=== PATIENT | male | born 1950 | race Caucasian/White ===

== ENCOUNTER 2024-02-22 00:27 | Observation (INO) | payer MEDICARE, OTHER, SELFPAY ==
[2024-02-22] VITALS (7 sets, daily range): BP systolic 114–135; BP diastolic 57–87; PULSE 86–115; RESP 18–20; TEMP 36.8–37.3; O2SAT 92–98
--- NOTE | ~2024-02-22 | XR_ITS ---
Portable chest x-ray Comparison: None Clinical History: Covid Findings: Possible retrocardiac airspace consolidation focally. Right lung clear. Cardiomediastinal silhouette is unremarkable. Bones and soft tissues are unremarkable. Impression: Possible focal left lower lobe airspace disease. Correlate for atelectasis or pneumonia. Reviewed, dictated and finalized at [facility]. Impression: Possible focal left lower lobe airspace disease. Correlate for atelectasis or p neumonia.
[2024-02-22 00:49] LABS: Basophils Percent Auto 0.4 % (0.2-1.2); Eosinophils Percent Auto 0.4 % (0-4.4); Hematocrit 42.3 % (42.0-52.0); Hemoglobin 14.3 g/dL (14.0-18.0); Immature Granulocyte Absolute 0.03 K/mm3 (0.00-0.031); Immature Granulocyte Percent A 0.4 % (0-0.5); Lymphocytes Absolute Auto 1.27 K/mm3 (0.9-3.2); Lymphocytes Percent Auto 15.5 % (18.3-44.2); Mean Corpuscular HGB Conc 33.8 g/dl (32-36); Mean Corpuscular Hemoglobin 30.1 pg (26-34); Mean Corpuscular Volume 89.1 fl (80-100); Mean Platelet Volume 8.9 fl (7.4-10.4); Monocytes Absolute Auto 1.2 K/mm3 (0.1-0.6); Monocytes Percent Auto 14.5 % (2.6-8.5); Neutrophils Absolute Auto 5.7 K/mm3 (1.3-6.7); Neutrophils Percent Auto 68.8 % (45.5-73.1); Platelet Count Result 178 k/mm3 (150-375); Red Blood Count 4.75 M/mm3 (4.6-6.20); Red Cell Distribution Width 13.1 % (11.5-14.5); White Blood Count 8.2 K/mm3 (4.5-10.0)
[2024-02-22 00:59] LABS: Alanine Aminotransferase 14 U/L (6-50); Albumin Level 4.5 g/dL (3.5-5.1); Alkaline Phosphatase 80 U/L (38-126); Anion Gap 8 mmol/L (4-12); Aspartate Amino Transferase 21 U/L (17-59); Bilirubin,Total 0.6 mg/dL (0.2-1.3); Blood Urea Nitrogen 18 mg/dL (9-20); Calcium 9.4 mg/dL (8.4-10.2); Carbon Dioxide 25 mmol/L (22-30); Chloride 103 mmol/L (98-107); Estimated CRCL calculation 51 ml/min; Estimated Glomerular Filt Rate > 60; Glucose 183 mg/dL (65-110); Potassium 3.9 mmol/L (3.4-5.0); Sodium 136 mmol/L (137-145)
[2024-02-22 01:00] LABS: Lactic Acid Reflex 1.3 mmol/L (0.7-2.0)
--- NOTE | 2024-02-22 01:13 | ED.GENADULT ---
HPI - General Adult General Chief complaint: Unspecified Stated complaint: weakness Time Seen by Provider: 02/22/24 01:13 History of Present Illness HPI narrative: This is a 73-year-old male presenting ED with chief complaint of generalized weakness. patient has been feeling unwell for the last 3 days. Symptoms include dizziness, generalized weakness chest congestion with productive cough and subjective fevers. Decreased oral intake. He has been treating symptoms with Tylenol and cough syrup. He denies sick contacts at home. He denies falls, nausea vomiting or diarrhea. No lower extremity edema. [facility]LY [facility] Past Medical History Medical History CHF (congestive heart failure) Diabetes Exam Narrative: APPEARANCE: no apparent distress, Patient becomes dizzy when going from lying to sitting Head: atraumatic. EYES: EOMI, NOSE: Atraumatic NECK: Trachea midline RESPIRATORY: No increased rate of breathing , clear to auscultation CARDIOVASCULAR: tachycardic, no peripheral edema ABDOMINAL: Non-distended soft nontender MUSCULOSKELETAl: No obvious deformities NEURO: Alert. Moving 4/4 extremities SKIN:: Warm, dry. Normal color PSYCHIATRIC: Normal affect Course Vital Signs Vital signs: Vital Signs Temperature 99.2 F 02/22/24 00:29 Pulse Rate 115 H 02/22/24 00:29 Respiratory Rate 20 02/22/24 00:29 Blood Pressure 114/79 02/22/24 00:29 Pulse Oximetry 97 02/22/24 00:29 Oxygen Delivery Room Air 02/22/24 00:29 Temperature 99.2 F 02/22/24 00:29 Pulse Rate 99 02/22/24 03:47 Respiratory Rate 18 02/22/24 03:47 Blood Pressure 122/87 02/22/24 03:47 Pulse Oximetry 98 02/22/24 03:47 Oxygen Delivery Room Air 02/22/24 00:29 Medical Decision Making [facility] Narrative Medical decision making narrative: -Course: 73-year-old male presenting with 3 days of flu-like symptoms. positive for COVID. No oxygen requirements. Patient tachycardic on arrival. Given fluid resuscitation with improvement in heart rate. Attempted to ambulate the patient around the emergency department and he became lightheaded and had to be assisted back to his bed. Patient will be placed in observation for COVID and dehydration. -DDX includes but is not limited to: COVID flu pneumonia sepsis dehydration UTI CHF exacerbation -Co-morbidities complicating care: CHF,diabetes -Independent interpretation of studies: CBC and metabolic panel unremarkable. Lactic normal. COVID positive chest x-ray - clear lungs -Discussion of Management/Consultants: -Interventions: 2 L normal saline, Tylenol, 125cc/hr LR -Shared decision making / Disposition:observation Vital Signs Vital Signs: Vital Signs Temperature 99.2 F 02/22/24 00:29 Pulse Rate 115 H 02/22/24 00:29 Respiratory Rate 20 02/22/24 00:29 Blood Pressure 114/79 02/22/24 00:29 Pulse Oximetry 97 02/22/24 00:29 Oxygen Delivery Room Air 02/22/24 00:29 Temperature 99.2 F 02/22/24 00:29 Pulse Rate 99 02/22/24 03:47 Respiratory Rate 18 02/22/24 03:47 Blood Pressure 122/87 02/22/24 03:47 Pulse Oximetry 98 02/22/24 03:47 Oxygen Delivery Room Air 02/22/24 00:29 Lab Data 02/22/24 00:42 02/22/24 00:42 Labs: Lab Results 02/22/24 02/22/24 Range/Units 00:42 00:44 WBC 8.2 (4.5-10.0) K/mm3 RBC 4.75 (4.6-6.20) M/mm3 Hgb 14.3 (14.0-18.0) g/dL Hct 42.3 (42.0-52.0) % MCV 89.1 (80-100) fl MCH 30.1 (26-34) pg MCHC 33.8 (32-36) g/dl RDW 13.1 (11.5-14.5) % Plt Count 178 (150-375) k/mm3 MPV 8.9 (7.4-10.4) fl Immature Gran % (Auto) 0.4 (0-0.5) % Neut % (Auto) 68.8 (45.5-73.1) % Lymph % (Auto) 15.5 L (18.3-44.2) % Roosevelt % (Auto) 14.5 H (2.6-8.5) % Eos % (Auto) 0.4 (0-4.4) % Baso % (Auto) 0.4 (0.2-1.2) % Lymph # (Auto) 1.27 (0.9-3.2) K/mm3 Roosevelt # (Auto) 1.2 H (0.1-0.6) K/mm3 Eos
[2024-02-22 01:26] LABS: Influenza A QL RT-PCR Negative (Negative); Influenza B QL RT-PCR Negative (Negative); RSV RNA, RT-PCR Negative (Negative); SARS-CoV-2 RNA PCR Positive (Negative)
--- NOTE | 2024-02-22 02:12 | ECG_ITS ---
SEE SCANNED COPY FOR CONFIRMED REPORT MTDD
[2024-02-22] MEDS: ACETAMINOPHEN 500 MG TABLET 1000 MG PO ×2 (03:23→11:27)
[2024-02-22] MEDS: SODIUM CHLORIDE 0.9% IV 2,000 ML 999 ML IV CONT (03:25)
--- NOTE | 2024-02-22 05:38 | ED.GENADULT ---
HPI - General Adult General Chief complaint: Unspecified Stated complaint: weakness Time Seen by Provider: 02/22/24 01:13 Related Data Home Medications Medication Instructions Recorded Confirmed apixaban 5 mg tablet (Eliquis) 5 mg PO BID 02/22/24 02/22/24 Review of Systems Review of Systems: All systems reviewed & are unremarkable except as noted in HPI and below PMFSH Past Medical History Medical History CHF (congestive heart failure) Diabetes Social History Social History Smoking status: Never smoker Second hand tobacco smoke exposure: No Alcohol intake: never Substance use: never Do You Feel Safe in your Home?: Yes Lack of Transportation: No Lack of Food: Never True Current Housing: I Have Housing Concerned About Future Housing: YES Difficulty Paying Gas/Electric Bills: No Difficulty Paying for Meds: No Currently Unemployed: No Education: High School Diploma/GED Difficulty w/ Childcare or Family Care: No Spiritual care concerns: No Exam Narrative: GENERAL: Well appearing, no acute distress. HEAD: Normocephalic, atraumatic. NECK: Supple. No adenopathy, no masses. RESPIRATORY: respirations nonlabored. , no rales, wheezing. CARDIOVASCULAR: Regular rate and rhythm without murmurs, . Peripheral pulses 2+ and equal bilaterally. ABDOMINAL: Soft, nontender, nondistended, no hepatosplenomegaly. Normoactive BS. MUSCULOSKELETAL: no Epigastric and no hypochondrial tenderness SKIN: Warm, dry, NEURO: A&O X3. Moves all extremities Course Vital Signs Vital signs: Vital Signs Temperature 37.3 C 02/22/24 00:29 Pulse Rate 115 H 02/22/24 00:29 Respiratory Rate 20 02/22/24 00:29 Blood Pressure 114/79 02/22/24 00:29 Pulse Oximetry 97 02/22/24 00:29 Oxygen Delivery Room Air 02/22/24 00:29 Temperature 37.3 C 02/22/24 00:29 Pulse Rate 103 H 02/22/24 05:15 Respiratory Rate 19 02/22/24 05:15 Blood Pressure 125/83 02/22/24 05:15 Pulse Oximetry 97 02/22/24 05:15 Oxygen Delivery Room Air 02/22/24 00:29 Medical Decision Making Vital Signs Vital Signs: Vital Signs Temperature 37.3 C 02/22/24 00:29 Pulse Rate 115 H 02/22/24 00:29 Respiratory Rate 20 02/22/24 00:29 Blood Pressure 114/79 02/22/24 00:29 Pulse Oximetry 97 02/22/24 00:29 Oxygen Delivery Room Air 02/22/24 00:29 Temperature 37.3 C 02/22/24 00:29 Pulse Rate 103 H 02/22/24 05:15 Respiratory Rate 19 02/22/24 05:15 Blood Pressure 125/83 02/22/24 05:15 Pulse Oximetry 97 02/22/24 05:15 Oxygen Delivery Room Air 02/22/24 00:29 Lab Data 02/22/24 00:42 02/22/24 00:42 Labs: Lab Results 02/22/24 02/22/24 Range/Units 00:42 00:44 WBC 8.2 (4.5-10.0) K/mm3 RBC 4.75 (4.6-6.20) M/mm3 Hgb 14.3 (14.0-18.0) g/dL Hct 42.3 (42.0-52.0) % MCV 89.1 (80-100) fl MCH 30.1 (26-34) pg MCHC 33.8 (32-36) g/dl RDW 13.1 (11.5-14.5) % Plt Count 178 (150-375) k/mm3 MPV 8.9 (7.4-10.4) fl Immature Gran % (Auto) 0.4 (0-0.5) % Neut % (Auto) 68.8 (45.5-73.1) % Lymph % (Auto) 15.5 L (18.3-44.2) % Adams % (Auto) 14.5 H (2.6-8.5) % Eos % (Auto) 0.4 (0-4.4) % Baso % (Auto) 0.4 (0.2-1.2) % Lymph # (Auto) 1.27 (0.9-3.2) K/mm3 Adams # (Auto) 1.2 H (0.1-0.6) K/mm3 Eos # (Auto) 0.0 (0-0.3) K/mm3 Baso # (Auto) 0.0 (0.0-0.1) K/mm3 Abs Immat Gran (auto) 0.03 (0.00-0.031) K/mm3 Absolute Neuts (auto) 5.7 (1.3-6.7) K/mm3 Absolute Nucleated RBC 0.000 (0.0-0.012) K/mm3 Nucleated RBC % 0.0 (0.0-0.2) % Sodium 136 L (137-145) mmol/L Potassium 3.9 (3.4-5.0) mmol/L Chloride 103 (98-107) mmol/L Carbon Dioxide 25 (22-30) mmol/L Anion Gap 8 (4-12) mmol/L BUN 18 (9-20) mg/dL Creatinine 1.10 (0.7-1.3) mg/dL Estim Cre
--- NOTE | 2024-02-22 05:40 | PM.IMHP ---
H&P: HPI History of Present Illness Date/Time: 02/22/24 05:40 Chief Complaint: Weakness Narrative: patient is a 73-year-old male presented to emergency room with generalized weakness difficulty ambulating dizziness and congestion and cough with fever of 102.5. Patient oral intake has been decreased for the last few days he has been sick no recent travel no nausea vomiting diarrhea no exposure to any COVID according the patient. Patient has history of diabetes and congestive heart failure. Item number new issue patient was very dizzy he was been discharged from the ED when she he almost fell patient being admitted hospital for IV hydration and monitor tested positive for COVID Review of Systems Review of Systems: All systems reviewed & are unremarkable except as noted in HPI and below PMFSH Past Medical History Medical History CHF (congestive heart failure) Diabetes Meds Vital Signs Vital Signs - 24 hr 02/22/24 00:29 02/22/24 00:35 02/22/24 03:47 Temperature 37.3 C Pulse Rate 115 H 99 Respiratory Rate 20 18 Blood Pressure 114/79 122/87 Pulse Oximetry 97 97 98 Oxygen Delivery Room Air Exam Narrative: GENERAL: Well appearing, no acute distress. HEAD: Normocephalic, atraumatic. NECK: Supple. No adenopathy, no masses. RESPIRATORY: respirations nonlabored. , no rales, wheezing. CARDIOVASCULAR: Regular rate and rhythm without murmurs, . Peripheral pulses 2+ and equal bilaterally. ABDOMINAL: Soft, nontender, nondistended, no hepatosplenomegaly. Normoactive BS. MUSCULOSKELETAL: no Epigastric and no hypochondrial tenderness SKIN: Warm, dry, NEURO: A&O X3. Moves all extremities H&P: Results Labs Labs: Short CBC 02/22/24 Range/Units 00:42 WBC 8.2 (4.5-10.0) K/mm3 Hgb 14.3 (14.0-18.0) g/dL Hct 42.3 (42.0-52.0) % Plt Count 178 (150-375) k/mm3 BMP 02/22/24 00:42 Sodium 136 L Potassium 3.9 Chloride 103 Carbon Dioxide 25 BUN 18 Creatinine 1.10 Glucose 183 H Calcium 9.4 Liver Function 02/22/24 Range/Units 00:42 Total Bilirubin 0.6 (0.2-1.3) mg/dL AST 21 (17-59) U/L ALT 14 (6-50) U/L Alkaline Phosphatase 80 (38-126) U/L Albumin 4.5 (3.5-5.1) g/dL Assessment and Plan Assessment and plan (1) COVID: Code(s): U07.1 - COVID-19 Status: Acute (2) Dehydration: Code(s): E86.0 - Dehydration Status: Acute (3) Diabetes: Code(s): E11.9 - Type 2 diabetes mellitus without complications Status: Acute (4) CHF (congestive heart failure): Code(s): I50.9 - Heart failure, unspecified Status: Acute Plan COVID positive. supportive care the IV hydration in isolation. Steroids if needed. watch for blood pressure monitoring. watch for secondary infections Heart failure EKG Chest x-ray Lipid panel, TSH,liver function test, will check for 2D echo results Daily weights Antiplatelet & Statin therapy Loop diuretics as indicate Patient educated about titrating diuretics at home based on weight blood pressure and symptoms. Optimize blood pressure < 130/80 Fall risk assessment Pneumonia and flu vaccine advised DM HBA1c ( goal <7.0%) , Monitor vitamin B12 levels Routine glucose monitoring. Watch for Hypoglycemia. BMI goal < 25 Exercise, Diet ( low salt- low carb) Weight loss start sliding scale insulin check hemoglobin A1c and lipid panel
[2024-02-22] MEDS: LACTATED RINGERS 1,000 ML 125 ML IV CONT (05:41)
--- NOTE | 2024-02-22 06:06 | ADMGEN ---
This patient, Haider Faria, was admitted to [address] [facility] Surg Room 300-01. Patient/family oriented to hospital policies and general routines including ID bracelet, bed and alarms, visiting hours, pain management, procedures, bathroom and other care routines, personal items, smoking policy, room service/diet, and visiting hours. Information on how to activate the Rapid Response Team has been discussed. Patient/Family are encouraged to report perceived risks to care and to ask questions if they do not understand what they are told or what they should do.
[2024-02-22 06:56] LABS: Alanine Aminotransferase 11 U/L (6-50); Albumin Level 3.5 g/dL (3.5-5.1); Alkaline Phosphatase 63 U/L (38-126); Anion Gap 5 mmol/L (4-12); Aspartate Amino Transferase 17 U/L (17-59); Bilirubin,Total 0.5 mg/dL (0.2-1.3); Blood Urea Nitrogen 15 mg/dL (9-20); Calcium 8.4 mg/dL (8.4-10.2); Carbon Dioxide 23 mmol/L (22-30); Chloride 109 mmol/L (98-107); Estimated CRCL calculation 62 ml/min; Estimated Glomerular Filt Rate > 60; Glucose 139 mg/dL (65-110); Potassium 3.7 mmol/L (3.4-5.0); Sodium 137 mmol/L (137-145)
[2024-02-22 07:44] LABS: Glucose Point of Care 124 mg/dl (65-105)
[2024-02-22] MEDS: ENOXAPARIN 40 MG/0.4 ML SYRINGE SUB-Q (09:51)
[2024-02-22] MEDS: PANTOPRAZOLE 40 MG TABLET PO (09:51)
[2024-02-22 12:15] LABS: Glucose Point of Care 157 mg/dl (65-105)
--- NOTE | 2024-02-22 12:50 | PM.IMHP ---
H&P: HPI History of Present Illness Date/Time: 02/22/24 12:50 Chief Complaint: weakness Narrative: This is 73-year-old male with a past medical history of CHF, AFib, diabetes and stroke history urine half ago the presents to the ED due to progressive weakness and flu-like symptoms. Patient developed cough and shortness of breath approximately 3 days ago. His associated symptoms were sore throat and dizziness. He is visiting this area to see family but lives in [place]. He denies being around any sick contacts. He did not take any [id number] medications for his symptoms. Not requiring any oxygen supplementation upon ED arrival. Is not up-to-date on COVID vaccinations. ED vitals: BP 114/79, pulse 115, RR 20, temp 99.2?, O2 sat 97 RA Findings: CBC and CMP in significant findings. COVID positive, flu and RSV negative. X-ray showing left lower lobe airspace disease. [facility] Past Medical History Medical History CHF (congestive heart failure) Diabetes Social History Social History Smoking status: Never smoker Second hand tobacco smoke exposure: No Alcohol intake: never Substance use: never Do You Feel Safe in your Home?: Yes Lack of Transportation: No Lack of Food: Never True Current Housing: I Have Housing Concerned About Future Housing: YES Difficulty Paying Gas/Electric Bills: No Difficulty Paying for Meds: No Currently Unemployed: No Education: High School Diploma/GED Difficulty w/ Childcare or Family Care: No Spiritual care concerns: No Meds Home Medications and Allergies Home Medications Medication Instructions Recorded Confirmed Type apixaban 5 mg tablet (Eliquis) 5 mg PO BID 02/22/24 02/22/24 History Allergies Allergy/AdvReac Type Severity Reaction Status Date / Time No Known Allergies Allergy Verified 02/22/24 12:07 Vital Signs Vital Signs - 24 hr 02/22/24 00:29 02/22/24 00:35 02/22/24 03:47 Temperature 99.2 F Pulse Rate 115 H 99 Respiratory Rate 20 18 Blood Pressure 114/79 122/87 Pulse Oximetry 97 97 98 Oxygen Delivery Room Air 02/22/24 05:15 02/22/24 06:20 02/22/24 10:15 Temperature 98.2 F Pulse Rate 103 H 86 Respiratory Rate 19 18 Blood Pressure 125/83 118/57 L Pulse Oximetry 97 96 Oxygen Delivery Room Air Exam Narrative: GENERAL: Comfortable, no acute distress , disheveled HENMT: moist mucous membranes EYES: EOM intact b/l NECK: no lymphadenopathy RESPIRATORY: bibasilar rales CARDIO: irregular rhythm, rate controlled GI: soft, nontender, bowel sounds present SKIN/EXTREMITIES: no rashes, no edema, no redness or tenderness NEURO: PROM intact, answers questions appropriately, A&O x4 H&P: Results Labs Labs: Short CBC 02/22/24 Range/Units 00:42 WBC 8.2 (4.5-10.0) K/mm3 Hgb 14.3 (14.0-18.0) g/dL Hct 42.3 (42.0-52.0) % Plt Count 178 (150-375) k/mm3 BMP 02/22/24 02/22/24 00:42 06:29 Sodium 136 L 137 Potassium 3.9 3.7 Chloride 103 109 H Carbon Dioxide 25 23 BUN 18 15 Creatinine 1.10 0.90 Glucose 183 H 139 H Calcium 9.4 8.4 Liver Function 02/22/24 02/22/24 Range/Units 00:42 06:29 Total Bilirubin 0.6 0.5 (0.2-1.3) mg/dL AST 21 17 (17-59) U/L ALT 14 11 (6-50) U/L Alkaline Phosphatase 80 63 (38-126) U/L Albumin 4.5 3.5 (3.5-5.1) g/dL Assessment and Plan Assessment and plan (1) COVID: Code(s): U07.1 - COVID-19 Status: Acute Assessment and Plan: Symptoms began on 02/19/2024. Not requiring oxygen supplementation at this time. Will not add dexamethasone. Remdesivir x3 days Albuterol p.r.n. Sinex p.r.n. (2) Dehydration: Code(s): E86.0 - Dehydration Status: Acute Assessment and Plan: Patient received 1 L of fluids in the ED. Currently on LR 125 mL/hour
[2024-02-22] MEDS: REMDESIVIR 200 MG/NS 250 ML 200 MG/250 ML BAG 250 MG IVPB (14:45)
[2024-02-22] MEDS: guaiFENesin 600 MG/DEXTROMETHORPHAN 30 MG SR TAB 12 HR 1 TAB PO ×2 (14:45→21:04)
[2024-02-22 16:48] LABS: Glucose Point of Care 131 mg/dl (65-105)
[2024-02-22 21:53] LABS: Glucose Point of Care 151 mg/dl (65-105)
[2024-02-23 06:00] VITALS: BP 129/71; PULSE 71; RESP 22; TEMP 36.8; O2SAT 93
[2024-02-23 06:51] LABS: Hemoglobin 11.9 g/dL (14.0-18.0); Mean Corpuscular HGB Conc 33.1 g/dl (32-36); Mean Corpuscular Hemoglobin 29.9 pg (26-34); Mean Corpuscular Volume 90.5 fl (80-100); Mean Platelet Volume 9.5 fl (7.4-10.4); Platelet Count Result 172 k/mm3 (150-375); Red Blood Count 3.98 M/mm3 (4.6-6.20); Red Cell Distribution Width 12.7 % (11.5-14.5); White Blood Count 9.7 K/mm3 (4.5-10.0)
[2024-02-23 07:03] LABS: Alanine Aminotransferase 11 U/L (6-50); Albumin Level 3.6 g/dL (3.5-5.1); Alkaline Phosphatase 69 U/L (38-126); Anion Gap 6 mmol/L (4-12); Aspartate Amino Transferase 20 U/L (17-59); Bilirubin,Total 0.6 mg/dL (0.2-1.3); Blood Urea Nitrogen 11 mg/dL (9-20); Calcium 8.4 mg/dL (8.4-10.2); Carbon Dioxide 24 mmol/L (22-30); Chloride 104 mmol/L (98-107); Estimated CRCL calculation 69 ml/min; Estimated Glomerular Filt Rate > 60; Glucose 95 mg/dL (65-110); Potassium 3.6 mmol/L (3.4-5.0); Sodium 134 mmol/L (137-145)
[2024-02-23 07:32] LABS: Glucose Point of Care 109 mg/dl (65-105)
[2024-02-23] MEDS: ATORVASTATIN 40 MG TABLET 80 MG PO (09:46)
[2024-02-23] MEDS: APIXABAN 5 MG TABLET PO (09:46)
[2024-02-23] MEDS: FENOFIBRATE 160 MG TABLET PO (09:46)
[2024-02-23] MEDS: EMPAGLIFLOZIN 12.5 MG TABLET PO (09:46)
[2024-02-23 09:47] VITALS: PULSE 71
[2024-02-23] MEDS: METOPROLOL SUCCINATE EXT REL 50 MG TABCR PO (09:47)
[2024-02-23] MEDS: guaiFENesin 600 MG/DEXTROMETHORPHAN 30 MG SR TAB 12 HR 1 TAB PO (09:47)
[2024-02-23] MEDS: PANTOPRAZOLE 40 MG TABLET PO (09:47)
[2024-02-23] MEDS: REMDESIVIR 100 MG/NS 250 ML 100 MG/250 ML BAG 250 MG IVPB (10:29)
[2024-02-23 12:01] LABS: Glucose Point of Care 230 mg/dl (65-105)
[2024-02-23] MEDS: INSULIN ASPART (*BKC) 100 UNITS/ML SUB-Q (12:31)
--- NOTE | 2024-02-23 12:43 | PM.DS ---
DS: Admitting Diagnosis Discharge Date 02/23/24 Admitting Diagnosis COVID DS: Discharge Diagnosis Discharge Diagnosis (1) COVID: Code(s): U07.1 - COVID-19 Status: Acute (2) Dehydration: Code(s): E86.0 - Dehydration Status: Acute (3) CHF (congestive heart failure): Code(s): I50.9 - Heart failure, unspecified Status: Acute (4) Diabetes: Code(s): E11.9 - Type 2 diabetes mellitus without complications Status: Acute DS: Summary Hospital Course Hospital Course: Patient is a 73-year-old male presented to emergency room with generalized weakness difficulty ambulating dizziness and congestion and cough with fever of 102.5.? Patient oral intake has been decreased for the last few days he has been sick no recent travel no nausea vomiting diarrhea no exposure to any COVID according the patient.? Patient has history of diabetes and congestive heart failure.? patient tested positive for COVID he did not require any oxygen supplementation.? Patient received 2 doses of remdesivir then was adamant about being discharged. Patient was doing well. He was eating and drinking appropriately. Patient independent in the room. Advised rest and pxcl-ifa-wepsqce medications as needed. His labs and vital signs are stable. Time Spent with Patient Time attestation: Total time spent providing and/or coordinating discharge services: Exam Narrative: GENERAL: Comfortable, no acute distress , disheveled HENMT: moist mucous membranes EYES: EOM intact b/l NECK: no lymphadenopathy RESPIRATORY: clear to auscultation CARDIO: irregular rhythm, rate controlled GI: soft, nontender, bowel sounds present SKIN/EXTREMITIES: no rashes, no edema, no redness or tenderness NEURO: PROM intact, answers questions appropriately, A&O x4 DS: Data Data Completed and Pending Labs on day of discharge: Labs from last 24 hours 02/23/24 02/23/24 02/23/24 11:58 07:23 06:00 WBC 9.7 RBC 3.98 L Hgb 11.9 L Hct 36.0 L MCV 90.5 MCH 29.9 MCHC 33.1 RDW 12.7 Plt Count 172 MPV 9.5 Sodium 134 L Potassium 3.6 Chloride 104 Carbon Dioxide 24 Anion Gap 6 BUN 11 Creatinine 0.80 Estim Creat Clear Calc 69 Estimated GFR > 60 Glucose 95 POC Capillary Glucose 230 H 109 H Calcium 8.4 Total Bilirubin 0.6 AST 20 ALT 11 Alkaline Phosphatase 69 Total Protein 6.0 L Albumin 3.6 02/22/24 02/22/24 21:14 16:45 WBC RBC Hgb Hct MCV MCH MCHC RDW Plt Count MPV Sodium Potassium Chloride Carbon Dioxide Anion Gap BUN Creatinine Estim Creat Clear Calc Estimated GFR Glucose POC Capillary Glucose 151 H 131 H Calcium Total Bilirubin AST ALT Alkaline Phosphatase Total Protein Albumin Discharge Plan Discharge Discharging Clinician: Alee Goodrich Patient Disposition: Home, Self-Care Activity: no preference Diet: regular Discharge Instructions: Take all medications as prescribed even if feeling better Remember to stay quarantined until 02/29/24 Wear a mask in public, and stay away from large crowds Eat well balanced meals and stay hydrated Keep active, but do not over do it No running marathons, riding your bike, or any other activity that is not mild If you notice that you are short of breath sit down and take a break Check your SPO2 periodically, if it is low cough and rest, check again in about 15 minutes, if you remain low, you should come back to the hospital If you should experience any chest pain, shortness of breath, temps >100.4 or any other worrisome symptoms please follow up with your PCP come back to the hospital Follow up with your primary in 1 weeks It has been a pleasure taking care of you thank you for using our services Patient Instructions: Antibiotic Form, Apixaban (By mouth), Heart Failure (DC), How To Wash Your Hands (DC), Droplet Pr
[2024-02-23 14:00] VITALS: BP 122/84; PULSE 72; RESP 16; TEMP 36.8; O2SAT 98
== END 2024-02-23 16:00 | disposition home or self-care (01) ==
LOC: ANHED 05:47 → ANH3MEDSUR 05:50
PROVIDERS: Internal Medicine Critical Care Medicine; Admitting Provider Internal Medicine; Emergency Provider Emergency Medicine; Visit Provider Internal Medicine
DX: U07.1 COVID-19 (principal); E86.0 Dehydration; I50.9 Heart failure, unspecified; E11.9 Type 2 diabetes mellitus without complications; Z79.01 Long term (current) use of anticoagulants; Z79.84 Long term (current) use of oral hypoglycemic drugs
CPT/HCPCS: 36415; 71045; 80053; 82948; 83605; 85025; 85027; 87637; 93005; 96361; 96374; 96375; 99285; A9270; G0378; J0248; J1650; J1815; J7030; J7120